=== PATIENT | female | born 1975 | race Caucasian/White ===

== ENCOUNTER 2017-04-25 20:38 | Emergency (ER) | payer SELFPAY ==
[2017-04-25 21:56] LABS: BASOPHIL % 0.4 % (0-2); PLATELET COUNT 340 x10^3mcL (130-400)
[2017-04-25 22:06] LABS: rbc morphology (normal/abnorm) ABNORMAL (NORMAL)
[2017-04-25 22:07] LABS: ovalocyte/elliptocyte 1+
[2017-04-26 00:20] VITALS: BP 138/76
== END 2017-04-26 00:20 | disposition home or self-care (01) ==
LOC: ED 20:38
PROVIDERS: Emergency Medicine
DX: O03.9 Complete or unspecified spontaneous abortion without complication (principal); D64.9 Anemia, unspecified; Z3A.01 Less than 8 weeks gestation of pregnancy; I10 Essential (primary) hypertension

== ENCOUNTER 2018-08-22 11:47 | Emergency (ER) | payer MEDICAID ==
[2018-08-22 15:45] VITALS: BP 145/78
== END 2018-08-22 15:45 | disposition home or self-care (01) ==
LOC: ED 11:47
DX: M54.31 Sciatica, right side (principal); I10 Essential (primary) hypertension; N92.6 Irregular menstruation, unspecified
CPT/HCPCS: J1885

== ENCOUNTER 2018-09-10 09:50 | Emergency (ER) | payer MEDICAID ==
[~2018-09-10] VITALS: Ht 160 cm; Wt 96.2 kg
[2018-09-10 09:55] VITALS: Ht 160 cm; Wt 96.2 kg
[2018-09-10 11:21] VITALS: BP 128/69
== END 2018-09-10 11:21 | disposition home or self-care (01) ==
LOC: ED 09:50
DX: M79.604 Pain in right leg (principal); M54.30 Sciatica, unspecified side; I10 Essential (primary) hypertension; Z98.890 Other specified postprocedural states
CPT/HCPCS: J1885